=== PATIENT | male | born 1965 ===

== ENCOUNTER → 2021-01-26 19:11 | Outpatient (ROUT) | payer OTHER, SELFPAY ==
[2021-01-26 19:26] LABS: Cholesterol 206 mg/dL (140-199); HDL Cholesterol 38 mg/dL (40-60); LDL Cholesterol Calculated 132 mg/dL (<100); Triglycerides 182 mg/dL (35-150)
== END ==
PROVIDERS: Visit Provider Internal Medicine
DX: E78.2 Mixed hyperlipidemia (principal)
CPT/HCPCS: 80061